=== PATIENT | male | born 1975 | race Two or more races ===

== ENCOUNTER 2016-10-06 09:08 | Day surgery (SDC) | payer BC ==
[2016-10-05 11:00] VITALS: BMI 31.1
[2016-10-06] MEDS ORDERED: PROPOFOL 20 ML ONE (12:44)
[2016-10-06] MEDS ORDERED: MIDAZOLAM HCL 2 MG/2 ML SINGLE DOSE VIAL ONE (12:44)
[2016-10-06] MEDS ORDERED: LIDOCAINE HCL/PF 2% SDV 5ML VIAL ONE (12:46)
[2016-10-06] MEDS ORDERED: HYDROmorphone HCL CARPU-JECT 2 MG/1 ML DISP.SYRIN IM ONE (13:04)
[2016-10-06] MEDS ORDERED: ceFAZolin SODIUM 1 GM VIAL ONE (13:04)
[2016-10-06] MEDS ORDERED: TAMSULOSIN HCL 0.4 MG CAP.ER.24H (FP) PO ONE (13:04)
[2016-10-06] MEDS ORDERED: ACETAMINOPHEN 325 MG TABLET (FP) PO PRN (13:04)
[2016-10-06] MEDS ORDERED: GENTAMICIN SO4 80 MG/2 ML VIAL ONE (13:08)
[2016-10-06] MEDS ORDERED: ceFAZolin SODIUM 1 GM VIAL IVPB ONE (13:08)
[2016-10-06] MEDS ORDERED: GENTAMICIN SO4 80 MG/2 ML VIAL IVPB ONE (13:08)
[2016-10-06] MEDS ORDERED: DEXAMETHASONE SOD PHOSPHATE 4 MG/1 ML VIAL ONE (13:10)
[2016-10-06] MEDS ORDERED: KETOROLAC TROMETHAMINE 30 MG/1 ML VIAL ONE (13:10)
[2016-10-06] MEDS ORDERED: ONDANSETRON 4 MG/2 ML VIAL IVPUSH PRN (14:13)
[2016-10-06] MEDS ORDERED: LACTATED RINGERS SOLUTION 1,000 ML IV SCH (14:15)
[2016-10-06] MEDS ORDERED: TAMSULOSIN HCL 0.4 MG CAP.ER.24H (FP) ONE (16:24)
[2016-10-06 17:01] VITALS: TEMP 97.6
[2016-10-06 17:34] VITALS: BP 124/70; PULSE 66
--- NOTE | 2016-10-06 18:54 | HP ---
DATE OF ADMISSION: DATE OF DICTATION: 10/06/2016 HISTORY: Patient is a 41-year-old male with history of left flank pain, left and persistent microscopic hematuria. Patient has had this for over 6 weeks, multiple medications and hydration have been unable to dislodge the stone. Patient does complain of left flank pain, also has some urgency and frequency. He does have dysuria, no hematuria. 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 He has a seizure disorder for which he takes Keppra; last seizure was in August of last year. PAST MEDICAL HISTORY: He denies any other medical history. ALLERGIES: He denies any allergies. LABORATORY: His urinalysis has always revealed blood in the urine, and a CAT scan always reveals a left mild hydronephrosis with a mid ureteral stone. PHYSICAL EXAMINATION: Chest is clear. Heart is regular. Abdomen is soft. There is CVA tenderness. Left lower quadrant tenderness. Genitalia are atraumatic. Phallus is within normal limits. Meatus is adequate. Prostate is 2+, smooth, benign, and nontender. The patient's BUN and creatinine are 14/0.1. IMPRESSION: At present, left ureteral stone with left colic. PLAN: Cystoscopy, left ureteroscopic laser lithotripsy with stent placement. This was explained to the patient fully. This will be performed at [facility]. VASILE ARELLANO M.D. [id number]
--- NOTE | 2016-10-06 19:47 | OP ---
DATE OF OPERATION: 10/06/2016 PREOPERATIVE DIAGNOSIS: Left hydronephrosis, left ureteral stone. POSTOPERATIVE DIAGNOSIS: Left hydronephrosis, left ureteral stone. OPERATIVE PROCEDURE: Cystourethroscopy, left retrograde pyelogram, left ureteroscopy, left stone basketing, and placement of a left JJ stent. ANESTHESIA: General. DESCRIPTION OF PROCEDURE: Under above stated anesthesia, the patient is prepped and draped in the usual sterile manner. He is placed in the dorsal lithotomy position. A continuous flow 30-degree scope was introduced under direct vision. Anterior urethra was within normal limits. Prostatic urethra revealed mild bilateral hypertrophy. Bladder was entered. Urine was collected for C and S. Inspection of the bladder revealed a grade 1 trabeculation throughout. Ureteral orifices were within normal limits with efflux of clear urine from the right. None was seen from the left. No lesions or calculi were seen in the bladder. A Flexi-Tip catheter was placed in the left ureteral orifice, and several mL of contrast was injected. This revealed a filling defect in the left mid ureter with proximal hydroureteral nephrosis. A Glidewire was passed up the left renal unit. The cystoscope was removed. The semi-rigid ureteroscope was inserted. Ureteroscopy was then performed in the usual fashion. A stone was seen at the level of the mid ureter completely blocking the lumen of the ureter. Using the Holmium laser, the stone was fragmented into 2 pieces. Using a stone basket, both pieces were removed. No active bleeding was noted. A continuation of the ureteroscope revealed a normal renal pelvis. Therefore, the ureteroscope was removed. The 22-cm 6-Kinyarwanda JJ stent was left in place. X-rays confirmed good position of the stents. The bladder was emptied. Scope was removed. The patient tolerated the procedure well. He returned to the recovery room in good condition. Shawna [id number]
--- NOTE | 2016-10-11 13:20 | PATH ---
Surgical Pathology Report Patient Name: DERIAN ESCOBAR [facility]. Rec. #: [id number] /Age/Gender: 1975 (Age: 41) / M Account: [id number] Location: [facility] SURGICAL Taken: 10/06/2016 Received: 10/09/2016 Reported: 10/11/2016 Physicians: Malu Bhagat M.D. Specimen(s) Received A: CONDYLOMA TISSUE B: LEFT URETERAL STONE Clinical History Left ureteral stone Final Diagnosis A. CONDYLOMA TISSUE, EXCISION: CONSISTENT WITH CONDYLOMA ACUMINATUM WITH CAUTERY ARTIFACT. NO HIGH GRADE DYSPLASIA IDENTIFIED. Comment: HPV typing performed and interpreted at [place], [place] ([id number]) shows the following results: HPV WSS (subtypes 6,11,16,18,31,33,and 51): Positive HPV Low Risk (subtypes 6/11): Positive HPV High Risk (subtypes 16/18): Negative B. URETERAL STONE, LEFT, EXTRACTION: CALCULUS (GROSS EXAM). SPECIMEN SENT FOR CHEMICAL ANALYSIS. Electronically Signed Yong Trinh M.D. Gross Description A. Received in formalin labeled "condyloma tissue," are 5 brown/rosado, verrucoid skin lesions ranging from 0.4 x 0.3 x 0.2 cm to 0.8 x 0.6 x 0.3 cm. The specimens are submitted in toto in 2 cassettes. B. Received fresh labeled "left ureteral stone," is a 0.3 x 0.3 x 0.2 cm brown, irregular calculus which is sent for chemical analysis. 10/09/201610/09/2016
[2016-10-18 00:06] LABS: COLOR Brown (.); SIZE 4x2x2 mm (.)
== END 2016-10-06 17:45 | disposition home or self-care (01) ==
LOC: JASU-SURG 09:08
PROVIDERS: ATTEND Urology
PROC: 0T778DZ Dilation of Left Ureter with Intraluminal Device, Via Natural or Artificial Opening Endoscopic (ICD-10-PCS; principal; 2016-10-06 11:00)
PROC: 0TC78ZZ Extirpation of Matter from Left Ureter, Via Natural or Artificial Opening Endoscopic (ICD-10-PCS; 2016-10-06 11:00)
PROC: BT1FYZZ Fluoroscopy of Left Kidney, Ureter and Bladder using Other Contrast (ICD-10-PCS; 2016-10-06 11:00)
DX: N40.1 Benign prostatic hyperplasia with lower urinary tract symptoms (principal)
CPT/HCPCS: 36415; 76000-TC; 82360; 87086; 88300-TC; 88305-TC; 94760